=== PATIENT | male | born 1970 | race Caucasian/White ===

== ENCOUNTER 2021-06-26 13:57 | Emergency (ER) | payer SELFPAY ==
--- NOTE | 2021-06-26 16:34 | ED Physician Documentation ---
PD HPI URI - Stated complaint Stated Complaint: C+ - Chief complaint Chief Complaint: Resp - History obtained from History obtained from: Patient - History of Present Illness Timing - onset: How many days ago (5-6) Timing duration: Days (5-6) Timing details: Abrupt onset, Still present Associated symptoms: Fever, Chills, Nasal congestion, Dry cough, Dyspnea. No: NVD, Bilateral edema Contributing factors: Unimmunized. No: Sick contact, COPD / asthma Improves by: Rest Worsened by: Activity, Other (coughing) Similar symptoms before: Has not had sx before Recently seen: Clinic (Had positive COVID test 1 days ago at [facility]. Seen by PMD today and referred to ER for MAB therapy. Pt states no Rx given by PMD.) Review of Systems Constitutional: reports: Fever, Chills Nose: reports: Congestion Throat: denies: Sore throat Cardiac: denies: Chest pain / pressure Respiratory: reports: Dyspnea, Cough. denies: Wheezing GI: reports: Nausea. denies: Abdominal Pain, Vomiting, Diarrhea Skin: denies: Rash Neurologic: reports: Generalized weakness. denies: Headache PD PAST MEDICAL HISTORY - Past Medical History Cardiovascular: None Respiratory: None Endocrine/Autoimmune: None - Present Medications Home Medications: Ambulatory Orders Medication Instructions Recorded Confirmed Albuterol Sulf [Ventolin Hfa 2 - 3 puffs INH QID #1 inhaler 06/26/21 Inhaler] Benzonatate [Tessalon] 100 mg PO TID PRN #20 cap 06/26/21 dexAMETHasone [Decadron] 4 mg PO DAILY #5 tablet 06/26/21 - Allergies Allergies/Adverse Reactions: Allergies Allergy/AdvReac Type Severity Reaction Status Date / Time No Known Drug Allergies Allergy Verified 06/26/21 14:14 PD ED PE NORMAL - Vitals Vital signs reviewed: Yes - General General: Alert and oriented X 3, No acute distress, Well developed/nourished - Neck Neck: Supple, no meningeal sign, No adenopathy - Cardiac Cardiac: RRR, No murmur - Respiratory Respiratory: Clear bilaterally - Derm Derm: Normal color, Warm and dry - Extremities Extremities: No deformity, No edema, No calf tenderness / cord - Neuro Neuro: Alert and oriented X 3, No motor deficit, Normal speech Results - Vitals Vitals: Vital Signs - 24 hr 1006/26/21 06/26/21 16:26 17:17 18:00 Temperature 36.7 C Heart Rate 96 90 93 Respiratory 18 18 18 Rate Blood Pressure 146/86 H 144/95 H O2 Saturation 95 99 06/26/21 18:30 Temperature Heart Rate 92 Respiratory 16 Rate Blood Pressure 146/90 H O2 Saturation 98 Oxygen O2 Source Room air PD MEDICAL DECISION MAKING - ED course Complexity details: re-evaluated patient, considered differential (Here for MAB therapy. I did give him the fact sheet information describe the rationale for the medication and answered any questions he had. Also offered him medication for the cough and breathing.), d/w patient Departure - Departure Disposition: Home, Self Care Clinical Impression: COVID-19 Upper respiratory infection Qualifiers: URI type: unspecified viral URI Qualified Code(s): J06.9 - Acute upper respiratory infection, unspecified Condition: Stable Record reviewed to determine appropriate education?: Yes Follow-Up: Derek Ridley MD [Primary Care Provider] - Prescriptions: dexAMETHasone [Decadron] 4 mg PO DAILY #5 tablet Benzonatate [Tessalon] 100 mg PO TID PRN #20 cap PRN Reason: Cough Albuterol Sulf [Ventolin Hfa Inhaler] 2 - 3 puffs INH QID #1 inhaler Comments: Stay well-hydrated. Use the albuterol inhaler 2 to 3 puffs 4 times a day to help with breathing and decrease coughing. Benzonatate if needed for cough as well. Decadron steroid daily for 5 days to help with inflammation of the airways. These will try to help on your symptoms. I transmitted the prescription to [facility] in [place]. Discharge Date/Time: 06/26/21 19:03
[2021-06-26] MEDS ORDERED: DEXAMETHASONE 10 MG/ML VIAL PO STA (16:57)
[2021-06-26] MEDS ORDERED: ALBUTEROL 1 PUFF INH STA (16:57)
[2021-06-26] MEDS ORDERED: BENZONATATE 100 MG CAPSULE PO STA (16:57)
[2021-06-26] MEDS ORDERED: CHERRY SYRUP 10 ML UDC PO ONE (16:57)
[2021-06-26] MEDS ORDERED: CASIRIVIMAB/IMDEVIMAB 10 ML in SODIUM CHLORIDE 0.9% 50 ML IV ONE (17:30)
[2021-06-26 18:52] VITALS: BP 146/90
== END 2021-06-26 19:03 | disposition home or self-care (01) ==
LOC: ED 13:57
DX: U07.1 COVID-19 (principal); J06.9 Acute upper respiratory infection, unspecified
CPT/HCPCS: 94640; 99284; A9270; J7040; M0243; Q0244